=== PATIENT | male | born 1985 | race Caucasian/White ===

== ENCOUNTER 2022-06-10 13:33 | Outpatient (CLI) | payer OTHER, SELFPAY ==
[2022-06-10 13:11] LABS: Chloride* 100 mmol/L (96-114); Sodium* 137 mmol/L (135-149)
[2022-06-10 13:14] LABS: Blood Urea Nitrogen* 17 mg/dL (5-24); Carbon Dioxide* 26 mmol/L (20-32); Cholesterol* 249 mg/dL (90-199); Creatinine* 0.7 mg/dL (0.5-1.5); Estimated Glomerular Filt Rate 121 ml/min
[2022-06-10 13:15] LABS: Calcium* 9.8 mg/dL (8.4-10.6); Glucose* 118 mg/dL (60-115); HDL Cholesterol* 58 mg/dL (>=40); LDL Cholesterol Calculated 97 mg/dL (<100)
[2022-06-10 13:30] LABS: Triglycerides* 468 mg/dL (40-149)
== END 2022-06-10 13:34 | disposition home or self-care (01) ==
PROVIDERS: PCP Family Medicine; Visit Provider Family Medicine
DX: Z00.00 Encounter for general adult medical examination without abnormal findings (principal); I10 Essential (primary) hypertension; Z13.6 Encounter for screening for cardiovascular disorders
CPT/HCPCS: 80048; 80061

== ENCOUNTER 2022-08-04 19:13 | Outpatient (CLI) | payer OTHER, SELFPAY ==
[2022-08-04 14:35] LABS: Albumin* 4.1 g/dL (3.3-5.0)
[2022-08-04 14:37] LABS: Aspartate Amino Transferase* 44 U/L (12-35); Bilirubin Direct* 0.2 mg/dL (0.0-0.5); Bilirubin Total* 0.5 mg/dL (0.1-1.5); Total Protein* 6.7 g/dL (6.0-8.3)
[2022-08-04 14:38] LABS: Alanine Aminotransferase* 39 U/L (4-50); Alkaline Phosphatase* 61 U/L (40-150)
== END 2022-08-04 19:14 | disposition home or self-care (01) ==
PROVIDERS: PCP Family Medicine; Visit Provider Family Medicine
DX: E78.5 Hyperlipidemia, unspecified (principal); R73.9 Hyperglycemia, unspecified
CPT/HCPCS: 80076

== ENCOUNTER 2022-11-22 10:02 | Outpatient (CLI) | payer OTHER, SELFPAY | END 2022-11-22 10:03 | disposition home or self-care (01) | LOC: LKVREF 10:03 | PROVIDERS: PCP Family Medicine; Visit Provider Family Medicine | DX: Z00.00 Encounter for general adult medical examination without abnormal findings (principal); E78.5 Hyperlipidemia, unspecified; R73.9 Hyperglycemia, unspecified; R73.03 Prediabetes; I10 Essential (primary) hypertension | CPT/HCPCS: 80053 ==

== ENCOUNTER 2022-12-05 07:57 | Outpatient (CLI) | payer OTHER, SELFPAY ==
--- NOTE | 2022-12-05 08:15 | CRLHL7_ITS ---
For Patients: As a result of the Century Cures Act, medical imaging exams and procedure reports are released immediately into your electronic medical record. You may view this report before your referring provider. If you have questions, please contact your health care provider. INDICATION: EPIGASTRIC PAIN COMPARISON: none TECHNIQUE: Real time hercules scale imaging and color Doppler analysis was performed of the right upper quadrant. FINDINGS: The patient`s liver is of normal size and has diffusely increased echogenicity. There is a normal appearance of the hepatic IVC and proximal abdominal aorta. There is no evidence of ascites. The gallbladder is of normal size and there is no evidence of intraluminal stones or sludge. The gallbladder wall measures 2 mm in thickness. The common bile duct is of normal size and measures 4 mm in diameter at the level of the horacio hepatis. The pancreas appears normal. There is no evidence of a stone or hydronephrosis within the right kidney. The right kidney measures 13.9 cm in length. IMPRESSION: Diffuse hepatic steatosis. Normal gallbladder. Dictated by Bo Fernandez MD @ 12/05/2022 9:59:17 AM (Electronically Signed)
== END 2022-12-05 07:58 | disposition home or self-care (01) ==
LOC: US 07:59
PROVIDERS: PCP Family Medicine; Visit Provider Family Medicine
DX: R10.13 Epigastric pain (principal); K76.0 Fatty (change of) liver, not elsewhere classified
CPT/HCPCS: 76705

== ENCOUNTER 2022-12-19 08:01 | Outpatient (CLI) | payer OTHER, SELFPAY | END 2022-12-19 08:02 | disposition home or self-care (01) | PROVIDERS: PCP Family Medicine; Visit Provider Surgery | DX: K21.9 Gastro-esophageal reflux disease without esophagitis (principal); K31.7 Polyp of stomach and duodenum; K31.89 Other diseases of stomach and duodenum | CPT/HCPCS: 43239; 88305; J2250; J3010 ==

== ENCOUNTER 2023-11-10 09:05 | Outpatient (CLI) | payer OTHER, SELFPAY | END 2023-11-10 09:06 | disposition home or self-care (01) | PROVIDERS: PCP Family Medicine; Visit Provider Family Medicine | DX: E78.5 Hyperlipidemia, unspecified (principal); I10 Essential (primary) hypertension; Z13.29 Encounter for screening for other suspected endocrine disorder | CPT/HCPCS: 80053; 80061; 84443 ==

== ENCOUNTER 2024-03-25 19:19 | Outpatient (CLI) | payer OTHER, SELFPAY | END 2024-03-25 19:20 | disposition home or self-care (01) | LOC: NFLDREF 03-26 13:32 | PROVIDERS: PCP Family Medicine; Referring Provider Family Medicine; Visit Provider Family Medicine | DX: R53.83 Other fatigue (principal); Z13.29 Encounter for screening for other suspected endocrine disorder | CPT/HCPCS: 80061; 80076; 84443 ==

== ENCOUNTER 2024-03-27 08:58 | Outpatient (CLI) | payer OTHER, SELFPAY | END 2024-03-27 08:59 | disposition home or self-care (01) | LOC: NFLDREF 03-31 07:12 | PROVIDERS: PCP Family Medicine; Referring Provider Family Medicine; Visit Provider Family Medicine | DX: E78.00 Pure hypercholesterolemia, unspecified (principal); E87.6 Hypokalemia; I10 Essential (primary) hypertension | CPT/HCPCS: 80048; 80061; 80076 ==

== ENCOUNTER 2024-05-15 12:42 | Outpatient (CLI) | payer OTHER, SELFPAY | END 2024-05-15 12:43 | disposition home or self-care (01) | PROVIDERS: PCP Family Medicine; Visit Provider Physician Assistant | DX: R10.9 Unspecified abdominal pain (principal) | CPT/HCPCS: 80053; 83690 ==

== ENCOUNTER 2024-11-07 08:12 | Outpatient (CLI) | payer OTHER, SELFPAY | END 2024-11-07 08:13 | disposition home or self-care (01) | LOC: NFLDREF 11-09 04:07 | PROVIDERS: PCP Family Medicine; Referring Provider Family Medicine; Visit Provider Family Medicine | DX: I10 Essential (primary) hypertension (principal); E78.5 Hyperlipidemia, unspecified; R73.03 Prediabetes; J45.20 Mild intermittent asthma, uncomplicated | CPT/HCPCS: 80053; 80061 ==